=== PATIENT | female | born 1975 | race Caucasian/White ===

== ENCOUNTER → 2017-04-08 | Outpatient (CLI) | payer BC ==
--- NOTE | 2017-04-08 11:21 | MRI ---
STUDY: MRI OF THE BRAIN WITHOUT AND WITH GADOLINIUM History: Chronic tension headaches. Cervical radiculopathy. Arnold-Chiari syndrome. Headache, numbn ess and tingling in the upper extremities and blurred vision. Comparison: None. Technique: Multiplanar multi-sequence MRI of the brain was obtained utilizing standard departmental protocol. Sagittal and axial T1, axial T2, FLAIR, diffusion (DWI/ADC) images through the brain were performed. 18 cc of Omniscan was administered without reported complication following acquisition of informed w ritten consent. Post gadolinium axial and coronal whole brain images were performed. Findings: Pre gadolinium brain: The sulci, cisterns, and ventricles are age appropriate. There is no evidence of acute territorial infarction, hemorrhage, mass, mass effect or midline shift. There are no abnorm al intra-axial or extra-axial fluid collections. The major intracranial vascular flow voids are inta ct. There is no evidence of cerebellar tonsillar ectopia. Post gadolinium brain: Following the uneventful administration of intravenous gadolinium, there is n o evidence of abnormal brain parenchymal or leptomeningeal enhancement. IMPRESSION: 1. No evidence of acute intracranial abnormality. Reported By:
--- NOTE | 2017-04-08 14:40 | MRI ---
HISTORY: Chronic tension headaches, cervical radiculopathy, and Arnold-Chiari syndrome. Study: MRI cervical spine with contrast. Comparison: MRI brain dated same day. Technique: Multiplanar multisequence MRI of the cervical spine was obtained utilizing standard depar tmental protocol. Post-contrast sequences were performed. Findings: The visualized posterior fossa appears normal. No cerebellar tonsillar ectopia. No acute fracture or listhesis. There is straightening of the normal cervical lordosis, most likely secondary to anterio r cervical fusion at C5 through C7. There is limited evaluation of the bone marrow at these levels. Remaining bone marrow signal is unremarkable. Multilevel disc desiccation without significant disc h eight loss. The visualized spinal cord demonstrates normal course, caliber, and signal characteristi cs. The prevertebral soft tissues appear normal. No areas of abnormal contrast enhancement. C2 -- C3: No significant disc bulge, neural foraminal narrowing, or spinal canal stenosis. C3 -- C4: Broad-based disc bulge with associated uncovertebral hypertrophy causing mild right neural foraminal narrowing and spinal canal stenosis to 10 mm. No significant left neural foraminal narrow ing. C4 -- C5: Broad-based disc bulge with associated uncovertebral hypertrophy causing bilateral mild/mo derate neural foraminal narrowing and spinal canal stenosis to 10 mm. C5 -- C6: No significant disc bulge, neural foraminal narrowing, or spinal canal stenosis. C6 -- C7: Broad-based disc bulge with associated uncovertebral hypertrophy causing moderate to sever e left and mild/moderate right neural foraminal narrowing. No significant spinal canal stenosis. C7 -- T1: No significant disc bulge, neural foraminal narrowing, or spinal canal stenosis. IMPRESSION: 1. Multilevel degenerative and postsurgical changes of the cervical spine as above. 2. No evidence of a Chiari malformation or syrinx. Reported By:
== END ==
LOC: RAD 08:46
PROVIDERS: ATTEND Obstetrics & Gynecology Obstetrics
DX: M54.12 Radiculopathy, cervical region (principal); G44.229 Chronic tension-type headache, not intractable
CPT/HCPCS: 70552; 72142